=== PATIENT | male | born 1995 | race Caucasian/White ===

== ENCOUNTER 2019-12-22 22:07 | Emergency (ER) | payer OTHER ==
[~2019-12-22] VITALS: Ht 167.6 cm; Wt 58.5 kg
[2019-12-22] MEDS ORDERED: TIZANIDINE HCL4 M1 (22:28)
[2019-12-22] MEDS ORDERED: RELAFEN500 M1 (22:28)
[2019-12-22 22:44] LABS: URINE BILIRUBIN NEGATIVE (Negative); URINE BLOOD NEGATIVE (Negative); URINE CLARITY CLEAR; URINE COLOR YELLOW; URINE GLUCOSE-RANDOM NEGATIVE (Negative); URINE KETONES NEGATIVE (Negative); URINE LEUKOCYTES-REFLEX NEGATIVE (Negative); URINE NITRITE-REFLEX NEGATIVE (Negative); URINE PROTEIN NEGATIVE (Negative); URINE SPECIFIC GRAVITY 1.015 (1.005-1.030); URINE UROBILINOGEN 0.2 E.U./dl (0.2-1.0)
[2019-12-22 22:51] LABS: AMP/METHAMP Negative (Negative); BARBITURATES Negative (Negative); BENZODIAZEPINES Negative (Negative); COCAINE Negative (Negative); METHADONE Negative (Negative); OPIATES Negative (Negative); PCP Negative (Negative); THC Negative (Negative)
[2019-12-22 22:56] LABS: ABSOLUTE BASOPHILS 0.1 thou/uL (0.0-0.2); ABSOLUTE EOSINOPHILS 0.3 thou/uL (0.0-0.7); ABSOLUTE LYMPHOCYTES 2.8 thou/uL (0.8-5.3); ABSOLUTE MONOCYTES 0.5 thou/uL (0.0-1.2); ABSOLUTE NEUTROPHILS 3.6 thou/uL (1.6-8.1); EOSINOPHILS 4.8 %; HEMATOCRIT 43.1 % (42.0-52.0); HEMOGLOBIN 14.8 gm/dL (14.0-18.0); LYMPHOCYTES 38.3 %; MCH 31.6 pg (26.0-34.0); MCHC 34.3 g/dL (28.0-37.0); MCV 92.1 fL (80.0-100.0); MPV 9.1 fl. (7.2-11.1); NUCLEATED RBCS 0 /100WBC; PLATELET COUNT* 232 thou/uL (150-400); POLYS 48.9 %; RBC 4.68 mil/uL (4.50-6.00); RDW-CV 13.9 % (10.5-14.5); WBC 7.3 thou/uL (4.0-11.0)
[2019-12-22 23:08] LABS: CALCIUM 8.4 mg/dL (8.5-10.1); CREATININE 1.1 mg/dL (0.6-1.3); POTASSIUM 3.6 mmol/L (3.5-5.1)
[2019-12-22 23:13] LABS: ALBUMIN 4.5 g/dL (3.4-5.0); TOTAL PROTEIN 7.9 g/dL (6.4-8.2)
[2019-12-22 23:14] LABS: ALCOHOL 302 mg/dL (<10)
[2019-12-22 23:15] LABS: ACETAMINOPHEN < 2 ug/mL (10-30); SALICYLATE < 2.8 mg/dL (2.8-20.0)
[2019-12-23 00:29] VITALS: BP 118/85
--- NOTE | 2019-12-23 10:40 | EKG ---
[place] [address] ELECTROCARDIOGRAM REPORT Name: ANASTASIA GRIFFITH Room: [facility]#: [id number] Admission: 12/22/19 Attend Phys: Discharge: 12/23/19 Date of : [birth year] Date of Service: 12/22/19 2254 Report #: [id number] THIS REPORT FOR: //name// [facility] ED Test Date: 2019-12-22 Test Time: 22:54:50 Pat Name: ANASTASIA GRIFFITH Department: Room: Gender: Dietitian Chief: JERRICA : 1995 Requested By: Godwin Trevino Order Number: [id number] MD: Loy Beauchamp Measurements Intervals [place] Rate: 114 P: 65 IN: 139 QRS: 96 QRSD: 102 T: -33 QT: 341 QTc: 470 Interpretive Statements Sinus tachycardia Consider left atrial enlargement Borderline right axis deviation Borderline repolarization abnormality Borderline prolonged QT interval Baseline wander in lead(s) V2 No previous ECG available for comparison Electronically Signed On 12-23-2019 10:40:44 CDT by Loy Beauchamp [email or web address] <ELECTRONICALLY SIGNED> By: Melly Beauchamp MD, FAC 12/23/19 1040 2254 2254 Melly Beauchamp MD, [facility] /EPI
== END 2019-12-23 00:33 | disposition home or self-care (01) ==
LOC: M.ERS 22:07
PROVIDERS: Family Medicine
DX: F10.129 Alcohol abuse with intoxication, unspecified (principal); Y90.8 Blood alcohol level of 240 mg/100 ml or more; R42 Dizziness and giddiness